=== PATIENT | male | born 1985 | race American Indian/Alaskan Native ===

== ENCOUNTER 2019-10-26 19:06 | Emergency (ER) | payer SELFPAY ==
--- NOTE | 2019-10-26 17:53 | Emergency Department Report ---
HPI - General Chief Complaint: Extremity Injury, Lower PUI?: No - HPI HPI: Room 4 The patient is a 34-year-old male present with a chief complaint of right knee pain. The patient states last night while he was walking he accidentally stepped into a pothole causing him to twist his right knee. The patient states he fell backwards folding his right leg underneath him. Patient only complains of pain in the right knee ED Past Medical Hx - Past Medical History Previous Medical History?: Yes Hx Hypertension: Yes - Surgical History Past Surgical History?: No - Family History Family history: no significant - Social History Smoking Status: Current Every Day Smoker (1/3 pack/day) Substance Use Type: None (Denies illicit drug use) - Medications Home Medications: Home Medications Medication Instructions Recorded Confirmed Last Taken Type Cyclobenzaprine [Flexeril] 10 mg PO TID PRN #10 tablet 10/26/19 Unknown Rx HYDROcodone/APAP 5-325 [[place] 1 each PO Q6HR PRN #14 tablet 10/26/19 Unknown Rx 5/325] Ibuprofen [Motrin 800 MG tab] 800 mg PO Q8HR PRN #20 tablet 10/26/19 Unknown Rx ED Review of Systems ROS: Stated complaint: RT KNEE PAIN Other details as noted in HPI Constitutional: no symptoms reported Respiratory: no symptoms reported Endocrine: no symptoms reported Musculoskeletal: arthralgia Physical Exam - Physical Exam Vital Signs: Vital Signs 10/26/19 17:18 Respiratory 16 Rate O2 Sat by Pulse 99 Oximetry Physical Exam: GENERAL: The patient is well-developed well-nourished male sleeping on stretcher not appearing to be in acute distress. [] HEENT: Normocephalic. Atraumatic. Extraocular motions are intact. Patient has moist mucous membranes. NECK: Supple. Trachea midline CHEST/LUNGS: There is no respiratory distress noted. HEART/CARDIOVASCULAR: Regular. Heart rate in the 50s while sleeping. There is no tachycardia. 2+ right DP SKIN: There is no rash. There is market edema of the right knee. No laceration seen. There is no diaphoresis. NEURO: The patient is awake, alert, and oriented. The patient is cooperative. The patient has no focal neurologic deficits. The patient has normal speech MUSCULOSKELETAL: There is no evidence of acute injury. ED Course Vital Signs 10/26/19 17:18 Respiratory 16 Rate O2 Sat by Pulse 99 Oximetry ED Medical Decision Making - Radiology Data Radiology results: report reviewed (Right knee x-ray), image reviewed (Right knee x-ray) interpreted by me: Right knee x-ray-no acute fracture [facility] [address] [place] [address] XRay Report Signed Patient: CARLOS ENRIQUE VICTOR MR#: [id number] : 1985 Acct:[id number] Age/Sex: 34 / M ADM Date: 10/26/19 Loc: ED Attending Dr: Ordering Physician: REINALDO PEDRAZA MD Date of Service: 10/26/19 Procedure(s): XR knee 3V RT Accession Number(s): [id number] cc: REINALDO PEDRAZA MD Fluoro Time In Minutes: RIGHT KNEE 3 VIEWS INDICATION / CLINICAL INFORMATION: Knee pain. COMPARISON: None available. FINDINGS: BONES / JOINT(S): No fracture. Lateral subluxation of the patella. No significant arthritis. SOFT TISSUES: Large joint effusion. ADDITIONAL FINDINGS: None. Signer Name: Brendan English MD Signed: 10/26/2019 6:54 PM Workstation Name: [id number] Transcribed By: ES Dictated By: Brendan English MD Electronically Authenticated By: Brendan English MD Signed Date/Time: 10/26/191853 DD/ 52 TD/TT: - Differential Diagnosis Tibial plateau fracture, knee sprain, ACL injury, patella fracture Critical care attestation.: If time is entered above; I have spent that time in minutes in the direct care of this critically ill patient, excluding procedure time. ED Disposition Clinical Impression: Injury of right knee Disposition: DC-01 TO HOME OR SELFCARE Is pt being admited?: No Does the pt Need Aspirin: No Condition: Stable Instructions: Anterior Cruciate Ligament Injury (ED), Knee Sprain (ED), Knee Effusion (ED) Additional Instructions: Return to the emergency department should you develop worsening symptoms, inability to tolerate food or liquids, high fever or any other concerns Prescriptions: Cyclobenzaprine [Flexeril] 10 mg PO TID PRN #10 tablet PRN Reason: Muscle Spasm Ibuprofen [Motrin 800 MG tab] 800 mg PO Q8HR PRN #20 tablet PRN Reason: Pain, Moderate (4-6) HYDROcodone/APAP 5-325 [[place] 5/325] 1 each PO Q6HR PRN #14 tablet PRN Reason: Pain Referrals: DANYELLE FIGUEROA MD [Staff Physician] - 3-5 Days (Dr. Figueroa is an orthopedic surgeon. Please follow-up with him for further evaluation) Time of Disposition: 19:05
--- NOTE | 2019-10-26 18:59 | XRay Report ---
RIGHT KNEE 3 VIEWS INDICATION / CLINICAL INFORMATION: Knee pain. COMPARISON: None available. FINDINGS: BONES / JOINT(S): No fracture. Lateral subluxation of the patella. No significant arthritis. SOFT TISSUES: Large joint effusion. ADDITIONAL FINDINGS: None. Signer Name: Brendan English MD Signed: 10/26/2019 6:54 PM Workstation Name: [id number]
[~2019-10-26 19:06] MED LIST: KETOROLAC 60 MG/2 ML INJ IM ONE
[2019-10-26 20:19] VITALS: BP 174/84
== END 2019-10-26 20:00 | disposition home or self-care (01) ==
LOC: ED 19:06
DX: S76.811A Strain of other specified muscles, fascia and tendons at thigh level, right thigh, initial encounter (principal)
CPT/HCPCS: 29505; 73562; 96372; 99283; J1885

== ENCOUNTER 2021-01-28 11:30 | Emergency (ER) | payer SELFPAY ==
[2021-01-28] MEDS ORDERED: SODIUM CHLORIDE 0.9% 1000 ML 1,000 ML IV ONE (11:51)
--- NOTE | 2021-01-28 11:52 | Emergency Department Report ---
ED General Adult HPI - General Chief complaint: Pain General Stated complaint: nausea Source: patient Mode of arrival: Ambulatory Limitations: No Limitations - History of Present Illness Initial comments: 35-year-old -[place] male presents to the emergency room reporting he has been having vomiting times last night and this morning. Patient states that he does not drink alcohol. He states he did a sub-. He had vomited 4-5 times at work today. Complains of body aches no fever nausea. Denies any past medical history currently takes no meds. States he cannot take aspirin as he is G6PD deficient. -: Last night Quality: aching Consistency: constant Improves with: none Worsens with: none Associated Symptoms: nausea/vomiting. denies: chest pain, diaphoresis, fever/chills, headaches, loss of appetite, shortness of breath Treatments Prior to Arrival: none - Related Data Previous Rx's Medication Instructions Recorded Last Taken Type Cyclobenzaprine [Flexeril] 10 mg PO TID PRN #10 tablet 10/26/19 Unknown Rx HYDROcodone/APAP 5-325 [[place] 1 each PO Q6HR PRN #14 tablet 10/26/19 Unknown Rx 5/325] Ibuprofen [Motrin 800 MG tab] 800 mg PO Q8HR PRN #20 tablet 10/26/19 Unknown Rx Ondansetron [Zofran Odt] 4 mg PO Q8HR PRN #12 tab.rapdis 01/28/21 Unknown Rx Allergies Allergy/AdvReac Type Severity Reaction Status Date / Time aspirin Allergy Unknown Verified 01/28/21 11:33 ED Review of Systems ROS: Stated complaint: nausea Other details as noted in HPI Comment: All other systems reviewed and negative ED Past Medical Hx - Past Medical History Hx Hypertension: Yes Additional medical history: G6PD - Social History Smoking Status: Current Every Day Smoker (1/3 pack/day) Substance Use Type: None (Denies illicit drug use) - Medications Home Medications: Home Medications Medication Instructions Recorded Confirmed Last Taken Type Cyclobenzaprine [Flexeril] 10 mg PO TID PRN #10 tablet 10/26/19 Unknown Rx HYDROcodone/APAP 5-325 [[place] 1 each PO Q6HR PRN #14 tablet 10/26/19 Unknown Rx 5/325] Ibuprofen [Motrin 800 MG tab] 800 mg PO Q8HR PRN #20 tablet 10/26/19 Unknown Rx Ondansetron [Zofran Odt] 4 mg PO Q8HR PRN #12 tab.rapdis 01/28/21 Unknown Rx ED Physical Exam - General Limitations: No Limitations ED Course Vital Signs 01/28/21 11:34 Temperature 98.1 F Pulse Rate 72 Respiratory 16 Rate Blood Pressure 145/110 O2 Sat by Pulse 99 Oximetry ED Medical Decision Making - Lab Data Result diagrams: 01/28/21 12:12 01/28/21 12:12 - Medical Decision Making 35-year-old -[place] male presents to the emergency room reporting he has been having vomiting times last night and this morning. Patient states that he does not drink alcohol. He states he did a sub-. He had vomited 4-5 times at work today. Complains of body aches no fever nausea. Denies any past med ical history currently takes no meds. States he cannot take aspirin as he is G6PD deficient. CBC CMP lipase. Lipase elevated mild elevation of his AST and potassium of 5.1. Patient is given normal saline Zofran. Patient be discharged home instructions to lay off the drinking increase his water intake can take Zofran as needed for the nausea and vomiting. Follow-up with his primary care provider next 48 hours for repeat labs. Critical care attestation.: If time is entered above; I have spent that time in minutes in the direct care of this critically ill patient, excluding procedure time. ED Disposition Clinical Impression: Acute nausea with nonbilious vomiting, Acute hyperkalemia Disposition: 01 HOME / SELF CARE / HOMELESS Is pt being admited?: No Does the pt Need Aspirin: No Condition: Stable Instructions: Nausea and Vomiting, Adult, [id number], Hyperkalemia, [id number] Additional Instructions: Recommend to lay off the drinking increase his water intake can take Zofran as needed for the nausea and vomiting. Follow-up with his primary care provider n ext 48 hours for repeat labs. Prescriptions: Ondansetron [Zofran Odt] 4 mg PO Q8HR PRN #12 tab.rapdis PRN Reason: Nausea And Vomiting Referrals: PRIMARY CARE, [Primary Care Provider] - 3-5 Days Forms: Work/School Release Form(ED) Time of Disposition: 15:51
[2021-01-28 12:20] LABS: Bilirubin,Urine NEG (Negative); Blood,Urine NEG (Negative); Color,Urine Yellow (Yellow); Mucus,Urine FEW /HPF; Protein,Urine <15 mg/dL mg/dL (Negative); WBC,Urine < 1.0 /HPF (0.0-6.0)
[2021-01-28 13:10] LABS: Basophils # (Auto) 0.1 K/mm3 (0.0-0.1); Basophils % (Auto) 0.7 % (0.0-1.8); Eosinophils # (Auto) 0.1 K/mm3 (0.0-0.4); Eosinophils % (Auto) 0.7 % (0.0-4.3); Hematocrit 43.7 % (35.5-45.6); Hemoglobin 14.2 gm/dl (11.8-15.2); Lymphocytes # (Auto) 1.1 K/mm3 (1.2-5.4); Lymphocytes % (Auto) 11.7 % (13.4-35.0); Mean Corpuscular HGB Conc 32 % (32-34); Mean Corpuscular Volume 89 fl (84-94); Monocytes # (Auto) 0.9 K/mm3 (0.0-0.8); Monocytes % (Auto) 9.8 % (0.0-7.3); Red Cell Distribution Width 14.4 % (13.2-15.2)
[2021-01-28 13:25] LABS: Platelet Count 201 K/mm3 (140-440)
[2021-01-28 13:34] LABS: Alanine Aminotransferase 42 units/L (7-56); Albumin 4.7 g/dL (3.9-5); BUN/Creatinine Ratio 25; Blood Urea Nitrogen 20 mg/dL (9-20); Calcium 9.2 mg/dL (8.4-10.2); Hemolysis Index 128
[2021-01-28] MEDS ORDERED: ONDANSETRON 4 MG/2 ML INJ IV ONE (15:11)
[2021-01-28 16:06] VITALS: BP 140/100
== END 2021-01-28 16:04 | disposition home or self-care (01) ==
LOC: ED 11:30
DX: E87.5 Hyperkalemia (principal); R11.2 Nausea with vomiting, unspecified; I10 Essential (primary) hypertension
CPT/HCPCS: 36415; 80053; 81001; 83690; 85025; 96361; 96374; 99283; J2405; J7030; Q0162